=== PATIENT | female | born 1950 | race Caucasian/White ===

== ENCOUNTER 2019-08-03 00:15 | Emergency (ER) | payer OTHER ==
[2019-08-03] MEDS ORDERED: Cleocin Phosphate IV 600 MG/4 ML IM STA (01:16)
[2019-08-03] MEDS ORDERED: Adacel Vial IM ONE ×2 (01:24→01:37)
--- NOTE | 2019-08-03 01:24 | ERPHSYRPT ---
- History of Present Illness Time Seen by Provider: 08/03/19 00:18 Source: patient Exam Limitations: no limitations Patient Subjective Stated Complaint: Patient came to the ER because she "thinks she was bit by something and is having swelling to her left ear forehead, cheeks and eyes on right side and to neck on left side where bite it. Triage Nursing Assessment: Patient is ambulatory, alert and oriented; has noticable swelling to her eyes and cheeks, and left ear from an apparent bug bite; otherwise a negative assessment Physician History: Patient is a 68-year-old female who presents to our ED with complaints of swelling to left external ear. Symptoms were observed today. Patient believes a insect may have bitten her left ear. Over the course of the day her left ear has become swollen. Patient states the left side of her face feels somewhat swollen. No trauma. No fever. No headache. No neck pain. No ear drainage. Symptoms are mild to moderate intensity. Symptoms are progressive. No specific worsening improving factors. Tetanus is not up-to-date. Patient voices no other complaints at this time. Timing/Duration: today Quality: itchy, painful Severity: mild Location: other (Left ear pain.) Possible Causes: insect bite Modifying Factors: Improves With: other Associated Symptoms: denies symptoms Allergies/Adverse Reactions: No Known Drug Allergies Allergy (Verified 08/03/19 00:44) Home Medications: Metformin HCl 1000 mg [Glucophage 1000 MG] 1,000 mg PO BID 07/10/11 [History] Citalopram Hydrobromide [Celexa] 20 mg PO DAILY 08/03/19 [History] Glipizide 5 mg [Glucotrol 5 MG] 5 mg PO BID 08/03/19 [History] Omeprazole 40 mg PO DAILY 08/03/19 [History] lisinopriL [Lisinopril] 20 mg PO DAILY 08/03/19 [History] Hx Tetanus, Diphtheria Vaccination/Date Given: No Hx Influenza Vaccination/Date Given: Yes Hx Pneumococcal Vaccination/Date Given: No Immunizations Up to Date: Yes Travel Risk - International Travel Have you traveled outside of the country in past 3 weeks: No Have you or anyone close to you been diagnosed with or: No Do your reside in a community with a known COVID-19 case?: Yes If Yes where:: [place] - Coronavirus Screening Has patient experienced Coronavirus symptoms: No - Review of Systems Constitutional: No Symptoms, No Fever, No Chills Eyes: No Symptoms Ears, Nose, & Throat: No Symptoms Respiratory: No Symptoms, No Cough, No Dyspnea Cardiac: No Symptoms, No Chest Pain, No Edema, No Syncope Abdominal/Gastrointestinal: No Symptoms, No Abdominal Pain, No Nausea, No Vomiting, No Diarrhea Genitourinary Symptoms: No Symptoms, No Dysuria Musculoskeletal: No Symptoms, No Back Pain, No Neck Pain Skin: No Symptoms, No Rash Neurological: No Symptoms, No Dizziness, No Focal Weakness, No Sensory Changes Psychological: No Symptoms Endocrine: No Symptoms Hematologic/Lymphatic: No Symptoms Immunological/Allergic: No Symptoms All Other Systems: Reviewed and Negative - Past Medical History Pertinent Past Medical History: Yes Neurological History: No Pertinent History ENT History: No Pertinent History Cardiac History: No Pertinent History Respiratory History: No Pertinent History Endocrine Medical History: Diabetes Type II Musculoskeletal History: No Pertinent History GI Medical History: No Pertinent History History: No Pertinent History Psycho-Social History: No Pertinent History Female Reproductive Disorders: No Pertinent History - Past Surgical History Past Surgical History: Yes Neuro Surgical History: No Pertinent History Cardiac: No Pertinent History Respiratory: No Pertinent History Gastrointestinal: Appendectomy, Cholecystectomy Genitourinary: No Pertinent History Musculoskeletal: No Pertinent History Female Surgical History: No Pertinent History Other Surgical History: I&D of bug bite - Social History Smoking Status: Former smoker How long have you smoked: 50 YEARS Exposure to second hand smoke: Yes Drug Use: none Patient Lives Alone: No - Nursing Vital Signs Nursing Vital Signs: Initial Vital Signs Temperature 97.7 F 08/03/19 00:26 Pulse Rate 96 H 08/03/19 00:26 Respiratory Rate 18 08/03/19 00:26 Blood Pressure 150/82 08/03/19 00:26 O2 Sat by Pulse Oximetry 97 08/03/19 00:26 Pain Scale Pain Intensity 0 - Physical Exam General Appearance: no apparent distress, alert Eye Exam: PERRL/EOMI, eyes nml inspection Ears, Nose, Throat Exam: TMs normal, pharynx normal, moist mucous membranes, other (Left ear perichondritis. No facial cellulitis. No lymphadenopathy.) Neck Exam: normal inspection, non-tender, supple, full range of motion Respiratory Exam: normal breath sounds, lungs clear, No respiratory distress Cardiovascular Exam: regular rate/rhythm, normal heart sounds Gastrointestinal/Abdomen Exam: soft, mass, No tenderness Back Exam: normal inspection, normal range of motion, No CVA tenderness, No vertebral tenderness Extremity Exam: normal inspection, normal range of motion Neurologic Exam: alert, oriented x 3, cooperative, normal mood/affect, sensation nml, No motor deficits Skin Exam: normal color, warm, dry Lymphatic Exam: No adenopathy SpO2 Interpretation: normal SpO2: 97 O2 Delivery: Room Air - Course Nursing assessment & vital signs reviewed: Yes Ordered Tests: Medication Summary Generic Name Dose Route Start Last Admin Trade Name Freq PRN Reason Stop Dose Admin Clindamycin Phosphate 600 mg 08/03/19 01:16 Cleocin Phosphate Iv 600 Mg/4 Ml IM 08/03/19 01:17 ONCE STA - Progress Progress: improved Progress Note: 08/03/19 01:27 Patient reassessed. She feels well. Patient declined pain medication. Tenderness is updated. Patient received 600 mg clindamycin IM. Prescription for the same was transmitted to her pharmacy. Patient voices no other complaints at this time. Patient advised to follow-up with her primary care doctor within 48 hours for reevaluation. Counseled pt/family regarding: diagnosis, need for follow-up - Departure Departure Disposition: Home Clinical Impression: Perichondritis Condition: Stable Critical Care Time: No Referrals: CHARI RICHEY [Primary Care Provider] - Additional Instructions: Discharge/Care Plan MONA JEAN-BAPTISTE was seen on 08/03/19 in the Emergency Room. The patient was counseled regarding Diagnosis,Lab results, Imaging studies, need for follow up and when to return to the Emergency Room. Prescriptions given: Discharge Note I have spoken with the patient and/or caregivers. I have explained the patient' s condition, diagnosis and treatment plan based on the information available to me at this time. I have answered the patient's and/or caregiver's questions and addressed any concerns. The patient and/or caregivers have as good understanding of the patient's diagnosis, condition and treatment plan as can be expected at this point. The vital signs have been stable. The patient's condition is stable and appropriate for discharge from the emergency department. The patient will pursue further outpatient evaluation with the primary care physician or other designated or consulting physician as outlined in the discharge instructions. The patient and/or caregivers are agreeable to this plan of care and follow-up instructions have been explained in detail. The patient and/or caregivers have received these instruction. The patient/and or caregivers are aware that any significant change in condition or worsening of symptoms should prompt an immediate return to this or the closest emergency department or call 911. Prescriptions: Clindamycin HCl 150 mg [Cleocin 150 mg Capsule] 2 cap PO QID #56 capsule
[2019-08-03] MEDS ORDERED: Cleocin Phosphate IV 600 MG/4 ML ONE (01:36)
[2019-08-03 01:50] VITALS: BP 136/69; PULSE 73; O2SAT 96
== END 2019-08-03 02:00 | disposition home or self-care (01) ==
LOC: ED 00:15
DX: H61.002 Unspecified perichondritis of left external ear (principal); E11.9 Type 2 diabetes mellitus without complications; Z79.899 Other long term (current) drug therapy
CPT/HCPCS: 90471; 90715; 96372; 99284

== ENCOUNTER 2019-08-04 16:28 | Emergency (ER) | payer OTHER ==
[2019-08-04 16:44] VITALS: O2SAT 96
--- NOTE | 2019-08-04 16:55 | ERPHSYRPT ---
- History of Present Illness Time Seen by Provider: 08/04/19 16:55 Patient Subjective Stated Complaint: Pt has swelling and itching to marcial ears, pt had been to this ER on for the same issue and was placed on an antibiotic, pt had been fishing when this happened and she went again last night Triage Nursing Assessment: Pt was brought to the ER by her daughter, pt has swelling to marcial ears, has been taking antibiotic since for the same thing, hypertensive, no difficulties with breathing or swallowing, denies any other issues Allergies/Adverse Reactions: No Known Drug Allergies Allergy (Verified 08/04/19 16:43) Home Medications: Metformin HCl 1000 mg [Glucophage 1000 MG] 1,000 mg PO BID 07/10/11 [History] Citalopram Hydrobromide [Celexa] 20 mg PO DAILY 08/03/19 [History] Glipizide 5 mg [Glucotrol 5 MG] 5 mg PO BID 08/03/19 [History] Omeprazole 40 mg PO DAILY 08/03/19 [History] lisinopriL [Lisinopril] 20 mg PO DAILY 08/03/19 [History] Hx Tetanus, Diphtheria Vaccination/Date Given: No Hx Influenza Vaccination/Date Given: Yes Hx Pneumococcal Vaccination/Date Given: No Travel Risk - International Travel Have you traveled outside of the country in past 3 weeks: No Have you or anyone close to you been diagnosed with or: No Do your reside in a community with a known COVID-19 case?: Yes If Yes where:: [place] - Coronavirus Screening Has patient experienced Coronavirus symptoms: No - Past Medical History Pertinent Past Medical History: Yes Neurological History: No Pertinent History ENT History: No Pertinent History Cardiac History: No Pertinent History Respiratory History: No Pertinent History Endocrine Medical History: Diabetes Type II Musculoskeletal History: No Pertinent History GI Medical History: No Pertinent History History: No Pertinent History Psycho-Social History: No Pertinent History Female Reproductive Disorders: No Pertinent History - Past Surgical History Past Surgical History: Yes Neuro Surgical History: No Pertinent History Cardiac: No Pertinent History Respiratory: No Pertinent History Gastrointestinal: Appendectomy, Cholecystectomy Genitourinary: No Pertinent History Musculoskeletal: No Pertinent History Female Surgical History: No Pertinent History Other Surgical History: I&D of bug bite - Social History Smoking Status: Former smoker How long have you smoked: 50 YEARS Exposure to second hand smoke: Yes Drug Use: none Patient Lives Alone: No - Female History Hx Now: No Physical Exam - Nursing Vital Signs Nursing Vital Signs: Initial Vital Signs Temperature 98.7 F 08/04/19 16:35 Pulse Rate 89 08/04/19 16:35 Blood Pressure 145/69 08/04/19 16:35 O2 Sat by Pulse Oximetry 96 08/04/19 16:35 Pain Scale Pain Intensity 0 - Physical Exam SpO2: 96 - Departure Referrals: CHARI RICHEY [Primary Care Provider] -
[2019-08-04] MEDS ORDERED: BENADRYL 50 MG/ML IM ONE (17:15)
[2019-08-04] MEDS ORDERED: solu-MEDROL 125 MG IM ONE (17:15)
[2019-08-04] MEDS ORDERED: Rocephin 1000 MG INJ IM ONE (17:16)
--- NOTE | 2019-08-04 17:19 | ERPHSYRPT ---
- History of Present Illness Time Seen by Provider: 08/04/19 16:55 Source: patient Exam Limitations: no limitations Patient Subjective Stated Complaint: Pt has swelling and itching to marcial ears, pt had been to this ER on for the same issue and was placed on an antibiotic, pt had been fishing when this happened and she went again last night Triage Nursing Assessment: Pt was brought to the ER by her daughter, pt has swelling to marcial ears, has been taking antibiotic since for the same thing, hypertensive, no difficulties with breathing or swallowing, denies any other issues Physician History: Is a 68-year-old white female with a history of [id number] diabetes, hypertension and gastroesophageal reflux disease who returns to the emergency room with worsening redness itching and swelling around her right eye. On 2019, the patient was seen in this emergency department for similar symptoms that occurred after [place]. She was given a shot of clindamycin and a prescription for clindamycin for home. Patient was concerned that her symptoms were getting worse after she was [place]. He has no respiratory complaints. She does not feel as though her tongue is swallowing or her breathing to the swollen. She has no wheezing and no coughing issues. Patient thinks she should have gotten a shot of Benadryl. Quality: itchy Severity: mild Location: face (On her forehead and around her right eye) Possible Causes: insect bite Associated Symptoms: denies symptoms Allergies/Adverse Reactions: No Known Drug Allergies Allergy (Verified 08/04/19 16:43) Home Medications: Metformin HCl 1000 mg [Glucophage 1000 MG] 1,000 mg PO BID 07/10/11 [History] Citalopram Hydrobromide [Celexa] 20 mg PO DAILY 08/03/19 [History] Glipizide 5 mg [Glucotrol 5 MG] 5 mg PO BID 08/03/19 [History] Omeprazole 40 mg PO DAILY 08/03/19 [History] lisinopriL [Lisinopril] 20 mg PO DAILY 08/03/19 [History] Hx Tetanus, Diphtheria Vaccination/Date Given: No Hx Influenza Vaccination/Date Given: Yes Hx Pneumococcal Vaccination/Date Given: No Travel Risk - International Travel Have you traveled outside of the country in past 3 weeks: No Have you or anyone close to you been diagnosed with or: No Do your reside in a community with a known COVID-19 case?: Yes If Yes where:: [place] - Coronavirus Screening Has patient experienced Coronavirus symptoms: No - Review of Systems Constitutional: No Symptoms Eyes: Other (This and swelling around her right thigh) Ears, Nose, & Throat: No Symptoms Respiratory: No Symptoms Cardiac: No Symptoms Abdominal/Gastrointestinal: No Symptoms Genitourinary Symptoms: No Symptoms Musculoskeletal: No Symptoms Skin: No Symptoms Neurological: No Symptoms Psychological: No Symptoms Endocrine: No Symptoms Hematologic/Lymphatic: No Symptoms Immunological/Allergic: No Symptoms All Other Systems: Reviewed and Negative - Past Medical History Pertinent Past Medical History: Yes Neurological History: No Pertinent History ENT History: No Pertinent History Cardiac History: No Pertinent History Respiratory History: No Pertinent History Endocrine Medical History: Diabetes Type II Musculoskeletal History: No Pertinent History GI Medical History: No Pertinent History History: No Pertinent History Psycho-Social History: No Pertinent History Female Reproductive Disorders: No Pertinent History - Past Surgical History Past Surgical History: Yes Neuro Surgical History: No Pertinent History Cardiac: No Pertinent History Respiratory: No Pertinent History Gastrointestinal: Appendectomy, Cholecystectomy Genitourinary: No Pertinent History Musculoskeletal: No Pertinent History Female Surgical History: No Pertinent History Other Surgical History: I&D of bug bite - Social History Smoking Status: Former smoker How long have you smoked: 50 YEARS Exposure to second hand smoke: Yes Drug Use: none Patient Lives Alone: No - Female History Hx Now: No - Nursing Vital Signs Nursing Vital Signs: Initial Vital Signs Temperature 98.7 F 08/04/19 16:35 Pulse Rate 89 08/04/19 16:35 Blood Pressure 145/69 08/04/19 16:35 O2 Sat by Pulse Oximetry 96 08/04/19 16:35 Pain Scale Pain Intensity 0 - Physical Exam General Appearance: no apparent distress, alert, anxiety Eye Exam: PERRL/EOMI, eyes nml inspection Ears, Nose, Throat Exam: normal ENT inspection, moist mucous membranes Neck Exam: normal inspection, non-tender, supple, full range of motion Respiratory Exam: normal breath sounds, lungs clear, airway intact, No chest tenderness, No respiratory distress Cardiovascular Exam: regular rate/rhythm, normal heart sounds, normal peripheral pulses Gastrointestinal/Abdomen Exam: soft, normal bowel sounds, No tenderness Pelvic Exam: not done Rectal Exam: not done Back Exam: normal inspection, normal range of motion, No CVA tenderness, No vertebral tenderness Extremity Exam: normal inspection, normal range of motion, pelvis stable Neurologic Exam: alert, oriented x 3, cooperative, 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 The skin area looks more like allergic reaction then a severe cellulitis) Lymphatic Exam: No adenopathy SpO2 Interpretation: normal SpO2: 96 O2 Delivery: Room Air - Course Nursing assessment & vital signs reviewed: Yes Ordered Tests: Medication Summary Discontinued Medications Generic Name Dose Route Start Last Admin Trade Name Freq PRN Reason Stop Dose Admin Ceftriaxone Sodium 1,000 mg 08/04/19 17:16 Rocephin 1000 Mg Inj IM 08/04/19 17:17 STAT ONE Diphenhydramine HCl 50 mg 08/04/19 17:15 Benadryl 50 Mg/Ml IM 08/04/19 17:16 STAT ONE Methylprednisolone Sodium Succinate 125 mg 08/04/19 17:15 Solu-Medrol 125 Mg IM 08/04/19 17:16 STAT ONE - Progress Progress: unchanged Counseled pt/family regarding: diagnosis, need for follow-up - Departure Departure Disposition: Home Clinical Impression: Allergic reaction, Cellulitis Condition: Stable Critical Care Time: No Referrals: CHARI RICHEY [Primary Care Provider] - Additional Instructions: Continue your antibiotic. Use [id number] Benadryl 25 mg 3 times a day for the next 4 to 5 days. Take your prescribed medication as prescribed. Monitor your blood sugar levels closely and treat elevated levels as you have been taught in the past. Return to the emergency department if your symptoms worsen. Follow-up with your primary care physician for persistent but not worsening symptoms. Avoid exposure of your face to the sun for the next 72 hours. Prescriptions: Famotidine 20 mg [Pepcid 20 MG] 20 mg PO DAILY #10 tablet Prednisone 10 mg [Deltasone 10 mg] 10 mg PO TID #12 tablet
[2019-08-04] MEDS ORDERED: BENADRYL 50 MG/ML ONE (17:43)
[2019-08-04] MEDS ORDERED: XYLOCAINE 1% HCL 20 ML MDV ONE (17:44)
[2019-08-04] MEDS ORDERED: solu-MEDROL 125 MG ONE (17:44)
[2019-08-04] MEDS ORDERED: Rocephin 1000 MG INJ ONE (17:44)
[2019-08-04 18:07] VITALS: BP 137/74; PULSE 75
== END 2019-08-04 18:12 | disposition home or self-care (01) ==
LOC: ED 16:28
DX: T78.40XA Allergy, unspecified, initial encounter (principal); L03.213 Periorbital cellulitis; W57.XXXA Bitten or stung by nonvenomous insect and other nonvenomous arthropods, initial encounter; E11.9 Type 2 diabetes mellitus without complications; I10 Essential (primary) hypertension; K21.9 Gastro-esophageal reflux disease without esophagitis
CPT/HCPCS: 96372; 99284; J0696; J1200; J2930

== ENCOUNTER 2021-03-20 10:13 | Emergency (ER) | payer MEDICARE, OTHER ==
--- NOTE | 2021-03-20 11:07 | XRAY ---
Indication: Cough and short of breath. Comparison: None Portable chest demonstrates subtle hazy diffuse bilateral patchy airspace disease without consolidation/large effusion. Heart borderline enlarged. Bony thorax intact with mild osteopenia and degenerative changes.
[2021-03-20 11:19] VITALS: PULSE 87
[2021-03-20 11:22] LABS: ALBUMIN 3.4 g/dL (3.5-5.0); ALKALINE PHOSPHATASE 107 U/L (38-126); ANION GAP 9.8 MEQ/L (5-15); BLOOD UREA NITROGEN 18 mg/dL (7-17); CHLORIDE 103 mmol/L (98-107); Calcium 8.8 mg/dL (8.4-10.2); Carbon Dioxide 30 mmol/L (22-30); Creatinine 1 0.48 mg/dL (0.52-1.04); EST GLOMERULAR FILTRATION RATE > 60.0 ML/MIN; Glucose 116 mg/dL (74-106); Potassium 4.1 mmol/L (3.5-5.1); SGOT/AST 21 U/L (14-36); SGPT/ALT 12 U/L (0-35); SODIUM 138 mmol/L (137-145); Total Protein 6.6 g/dL (6.3-8.2)
[2021-03-20 11:31] LABS: Absolute Neutrophil Ct (ANC) 3.77 (1.4-6.9); Basophil (Absolute #) 0.01 (0-0.4); Eosinophil % 1.4 % (0.00-5.0); Eosinophil (Absolute #) 0.09 (0-0.5); Hematocrit 33.9 % (35-47); Hemoglobin 10.6 gm/dl (12.0-16.0); Lymphocytes % 23.2 % (24.0-44.0); Mean Cell Volume 83.9 fl (78-100); Mean Corpuscular Hemoglobin 26.2 pg (26-32); Mean Corpuscular Hgb Concent. 31.3 g/dl (32-36); Mean Platelet Volume 9.6 fl (7.5-11.0); Neutrophil % 58.2 % (36.0-66.0); Platelet Count 244 K/mm3 (150-450); Red Blood Count 4.04 M/mm3 (4.1-5.4); Red Cell Distribution Width 13.6 % (11.5-14.0); White Blood Count 6.5 K/mm3 (4.0-10.5)
[2021-03-20 11:49] LABS: COVID AG -BINAX NOW RAPID TEST POSITIVE (NEGATIVE)
[2021-03-20 12:07] VITALS: BP 168/91; O2SAT 98
--- NOTE | 2021-03-20 12:28 | ERPHSYRPT ---
- History of Present Illness Time Seen by Provider: 03/20/21 10:30 Source: patient Exam Limitations: no limitations Patient Subjective Stated Complaint: Pt c/o of SOB, cough, headache, body aches, N&V since yesterday Triage Nursing Assessment: Pt brought self to the ER, hypertension, rates head pain as 8/10 and has overall body aches, denies being around anyone sick or with covid, unvaccinated, pulses normal, lungs clear, skin n/w/d, unproductive cough, doesn't appear to be in any distress Physician History: Patient is a 70-year-old female who presents with a 2-day history of shortness of breath and cough. She also has had fever headache and diarrhea. She has had a previous episode of COVID. Timing/Duration: day(s) Cough Quality/Degree: productive cough Modifying Factors: Improves With: coughing, lying down, rest Associated Symptoms: fever, chills, chest pain/soreness, cough, headache, muscle aches Allergies/Adverse Reactions: No Known Drug Allergies Allergy (Verified 03/20/21 10:24) Home Medications: Metformin HCl 1000 mg [Glucophage 1000 MG] 1,000 mg PO BID 07/10/11 [History] Citalopram Hydrobromide [Celexa] 20 mg PO DAILY 08/03/19 [History] Glipizide 5 mg [Glucotrol 5 MG] 5 mg PO BID 08/03/19 [History] Omeprazole 40 mg PO DAILY 08/03/19 [History] lisinopriL [Lisinopril] 40 mg PO DAILY 08/03/19 [History] Amlodipine Besylate 10 mg PO DAILY 03/20/21 [History] Hx Tetanus, Diphtheria Vaccination/Date Given: No Hx Influenza Vaccination/Date Given: Yes Hx Pneumococcal Vaccination/Date Given: No Travel Risk - International Travel Have you traveled outside of the country in past 3 weeks: No - Coronavirus Screening Are you exhibiting any of the following symptoms?: Yes Symptoms: Fever, Cough: New Onset, Shortness of Breath, Vomiting/Diarrhea, Headaches/Body Aches/Fatigue Close contact with a COVID-19 positive Pt in past 14-21 Days: No - Vaccine Status Have you recieved a Covid-19 vaccination: No - Review of Systems Constitutional: Fever, Chills, Fatigue, Lethargy, Night Sweats Eyes: No Symptoms Ears, Nose, & Throat: Nose Congestion, Nose Discharge Respiratory: Cough, Dyspnea, Wheezing Cardiac: No Chest Pain, No Edema, No Syncope Abdominal/Gastrointestinal: Diarrhea, No Abdominal Pain, No Nausea, No Vomiting Genitourinary Symptoms: No Symptoms, No Dysuria Musculoskeletal: Arthralgias, Myalgias, No Back Pain, No Neck Pain Skin: No Symptoms, No Rash Neurological: Headache, No Dizziness, No Focal Weakness, No Sensory Changes Psychological: No Symptoms Endocrine: No Symptoms All Other Systems: Reviewed and Negative - Past Medical History Pertinent Past Medical History: Yes Neurological History: No Pertinent History ENT History: No Pertinent History Cardiac History: Hypertension Respiratory History: No Pertinent History Endocrine Medical History: Diabetes Type II Musculoskeletal History: No Pertinent History GI Medical History: No Pertinent History History: No Pertinent History Psycho-Social History: No Pertinent History Female Reproductive Disorders: No Pertinent History - Past Surgical History Past Surgical History: Yes Neuro Surgical History: No Pertinent History Cardiac: No Pertinent History Respiratory: No Pertinent History Gastrointestinal: Appendectomy, Cholecystectomy Genitourinary: No Pertinent History Musculoskeletal: No Pertinent History Female Surgical History: No Pertinent History Other Surgical History: I&D of bug bite - Social History Smoking Status: Former smoker How long have you smoked: 50 YEARS Exposure to second hand smoke: Yes Drug Use: none Patient Lives Alone: No - Female History Hx Now: No - Nursing Vital Signs Nursing Vital Signs: Initial Vital Signs Temperature 97.4 F 03/20/21 10:14 Pulse Rate 84 03/20/21 10:14 Respiratory Rate 16 03/20/21 10:14 Blood Pressure 177/81 03/20/21 10:14 O2 Sat by Pulse Oximetry 97 03/20/21 10:14 Pain Scale Pain Intensity 8 - Physical Exam General Appearance: mild distress, alert Eye Exam: PERRL/EOMI, eyes nml inspection Ears, Nose, Throat Exam: normal ENT inspection, TMs normal, pharynx normal, moist mucous membranes Neck Exam: normal inspection, non-tender, supple, full range of motion Respiratory Exam: rhonchi, wheezing, No respiratory distress Cardiovascular Exam: regular rate/rhythm, normal heart sounds Gastrointestinal/Abdomen Exam: soft, No tenderness Back Exam: normal inspection, No CVA tenderness, No vertebral tenderness Extremity Exam: normal inspection, normal range of motion Neurologic Exam: alert, oriented x 3, cooperative, normal mood/affect, sensation nml, No motor deficits Skin Exam: normal color, warm, dry, No rash Lymphatic Exam: No adenopathy SpO2 Interpretation: normal SpO2: 98 O2 Delivery: Room Air - Course Nursing assessment & vital signs reviewed: Yes - Radiology Exams Chest X-ray Interpretation: Other (Chest x-ray shows subtle hazy bilateral diffuse patchy airspace disease without consolidation or large effusion.) Ordered Tests: Active Orders 24 hr Category Date Time Status CHEST 1 VIEW (PORTABLE) Stat Exams 03/20/21 10:31 Completed BLOOD CULTURE Stat Lab 03/20/21 11:08 Received CBC W DIFF Stat Lab 03/20/21 10:55 Completed CMP Stat Lab 03/20/21 10:55 Completed COVID AG-BINAX NOW RAPID TEST Stat Lab 03/20/21 11:10 Completed INFLUENZA A+B YAZ Stat Lab 03/20/21 10:55 Received Lactic Acid Stat Lab 03/20/21 11:04 Completed PROCALCITONIN Stat Lab 03/20/21 10:55 Received UA W/RFX UR CULTURE Stat Lab 03/20/21 12:05 Ordered Lab/Rad Data: Laboratory Result Diagrams 03/20/21 10:55 03/20/21 10:55 Laboratory Results 03/20/21 03/20/21 03/20/21 Range/Units 11:10 11:04 10:55 WBC (4.0-10.5) K/mm3 RBC (4.1-5.4) M/mm3 Hgb (12.0-16.0) gm/dl Hct (35-47) % MCV (78-100) fl MCH (26-32) pg MCHC (32-36) g/dl RDW (11.5-14.0) % Plt Count (150-450) K/mm3 MPV (7.5-11.0) fl Gran % (36.0-66.0) % Eos # (Auto) (0-0.5) Absolute Lymphs (auto) (1.0-4.6) Absolute Monos (auto) (0.0-1.3) Lymphocytes % (24.0-44.0) % Monocytes % (0.0-12.0) % Eosinophils % (0.00-5.0) % Basophils % (0.0-0.4) % Absolute Granulocytes (1.4-6.9) Basophils # (0-0.4) Sodium 138 (137-145) mmol/L Potassium 4.1 (3.5-5.1) mmol/L Chloride 103 (98-107) mmol/L Carbon Dioxide 30 (22-30) mmol/L Anion Gap 9.8 (5-15) MEQ/L BUN 18 H (7-17) mg/dL Creatinine 0.48 L (0.52-1.04) mg/dL Estimated GFR > 60.0 ML/MIN Glucose 116 H (74-106) mg/dL Lactic Acid 0.5 (0.4-2.0) Calcium 8.8 (8.4-10.2) mg/dL Total Bilirubin 0.40 (0.2-1.3) mg/dL AST 21 (14-36) U/L ALT 12 (0-35) U/L Alkaline Phosphatase 107 (38-126) U/L Serum Total Protein 6.6 (6.3-8.2) g/dL Albumin 3.4 L (3.5-5.0) g/dL SARS-CoV-2 Ag (Rapid) POSITIVE A* (NEGATIVE) 03/20/21 Range/Units 10:55 WBC 6.5 (4.0-10.5) K/mm3 RBC 4.04 L (4.1-5.4) M/mm3 Hgb 10.6 L (12.0-16.0) gm/dl Hct 33.9 L (35-47) % MCV 83.9 (78-100) fl MCH 26.2 (26-32) pg MCHC 31.3 L (32-36) g/dl RDW 13.6 (11.5-14.0) % Plt Count 244 (150-450) K/mm3 MPV 9.6 (7.5-11.0) fl Gran % 58.2 (36.0-66.0) % Eos # (Auto) 0.09 (0-0.5) Absolute Lymphs (auto) 1.50 (1.0-4.6) Absolute Monos (auto) 1.10 (0.0-1.3) Lymphocytes % 23.2 L (24.0-44.0) % Monocytes % 17.0 H (0.0-12.0) % Eosinophils % 1.4 (0.00-5.0) % Basophils % 0.2 (0.0-0.4) % Absolute Granulocytes 3.77 (1.4-6.9) Basophils # 0.01 (0-0.4) Sodium (137-145) mmol/L Potassium (3.5-5.1) mmol/L Chloride (98-107) mmol/L Carbon Dioxide (22-30) mmol/L Anion Gap (5-15) MEQ/L BUN (7-17) mg/dL Creatinine (0.52-1.04) mg/dL Estimated GFR ML/MIN Glucose (74-106) mg/dL Lactic Acid (0.4-2.0) Calcium (8.4-10.2) mg/dL Total Bilirubin (0.2-1.3) mg/dL AST (14-36) U/L ALT (0-35) U/L Alkaline Phosphatase (38-126) U/L Serum Total Protein (6.3-8.2) g/dL Albumin (3.5-5.0) g/dL SARS-CoV-2 Ag (Rapid) (NEGATIVE) - Progress Progress: unchanged Air Movement: good Blood Culture(s) Obtained: Yes Antibiotics given: Yes - Departure Departure Disposition: Home Clinical Impression: COVID-19 Condition: Stable Critical Care Time: No Referrals: JOVON BARCENAS NP [Primary Care Provider] - Follow up/PCP as directed Instructions: Coronavirus Disease 2019 (COVID-19) (DC) Prescriptions: Prednisone 10 mg [Deltasone 10 mg] 20 mg PO BID #20 tablet Albuterol Sulfate [Proventil Hfa] 6.7 gm IH Q4H 10 Days #1 inh Azithromycin 250 mg [Zithromax 250 MG TABLET] 250 mg PO ZPACK #6 tablet
[2021-03-20 12:32] LABS: INFLUENZA A NEGATIVE (NEGATIVE); INFLUENZA B NEGATIVE (NEGATIVE)
[2021-03-20 14:40] LABS: Appearance SLIGHTLY CLOUDY (CLEAR); Bacteria MANY /HPF (NEGATIVE); Bilirubin NEGATIVE (NEGATIVE); Blood SMALL Ery/ul (0-5); Epithelial Cells RARE /HPF (FEW); Glucose 150 mg/dL (NEGATIVE); Ketones NEGATIVE (NEGATIVE); Leukocyte Esterase MODERATE (NEGATIVE); Mucus SLIGHT /HPF (NEGATIVE); Nitrite NEGATIVE (NEGATIVE); Protein,Urine Dip 100 (Negative); Specific Gravity 1.023 (1.005-1.025); Urobilinogen NEGATIVE mg/dL (0-1)
== END 2021-03-20 12:53 | disposition home or self-care (01) ==
LOC: ED 10:13
DX: U07.1 COVID-19 (principal); R06.02 Shortness of breath; R05.9 Cough, unspecified; R50.9 Fever, unspecified; R51.9 Headache, unspecified; R19.7 Diarrhea, unspecified; I10 Essential (primary) hypertension; E11.9 Type 2 diabetes mellitus without complications; Z79.84 Long term (current) use of oral hypoglycemic drugs; Z79.52 Long term (current) use of systemic steroids; Z79.899 Other long term (current) drug therapy
CPT/HCPCS: 36415; 71045; 80053; 81001; 83605; 84145; 85025; 87040; 87077; 87086; 87186; 87400; 87651; 99000; 99284